=== PATIENT | male | born 1955 | race Caucasian/White ===

== ENCOUNTER 2020-08-20 16:15 | Outpatient (REF) | payer MEDICARE, SELFPAY ==
[2020-08-20 18:36] LABS: Abs Immature Grans 0.05 10^3/uL (0.0-0.06); Absolute Basophil Count 0.02 10^3/uL (0.0-0.2); Absolute Eosinophil Count 0.08 10^3/uL (0.0-0.7); Absolute Lymphocyte Count 2.11 10^3/uL (1.2-3.4); Absolute Monocyte Count 0.81 10^3/uL (0.1-0.8); Absolute Neutrophil Count 6.13 10^3/uL (1.2-6.7); Basophils % 0.2; Eosinophils % 0.9; HCT 47.2 % (40.0-50.0); HGB 15.4 g/dL (13.5-17.5); Immature Grans % 0.5; Lymphocytes % 22.9; MCH 29.9 pg (27.0-33.0); MCHC 32.6 % (32.0-36.0); MCV 91.7 fL (80-95); MPV 12.5 fL (8.0-11.0); Monocytes % 8.8; Neutrophils % 66.7; Nucleated RBC 0 %; Platelet Count 274 10^3/uL (130-400); RBC 5.15 10^6/uL (4.36-5.78); RDW 13.5 % (11.8-14.1); RDW-SD 46.2 fL
[2020-08-20 19:04] LABS: ALT 25 U/L (16-63); AST 13 U/L (15-37); Albumin 4.1 g/dL (3.4-5.0); Alkaline Phosphatase 67 U/L (46-116); Anion Gap 10.2 mmol/L (3-11); BUN 26 mg/dL (7-18); Bilirubin, Total 0.6 mg/dL (0.2-1.0); CO2 27.8 mmol/L (21.0-32.0); CREATININE 1.3 mg/dL (0.70-1.30); Calcium 9.8 mg/dL (8.5-10.1); Calculated LDL 102 mg/dL (<100); Chloride 104 mmol/L (98-107); Cholesterol 202 mg/dL (<200); Estimated GFR 55.23 (mL/min/1.73m2); Glucose 92 mg/dL (74-106); HDL Cholesterol 35 mg/dL (40-60); Sodium 142 mmol/L (136-145); TSH 0.02 uIU/mL (0.36-3.74); Total Protein 7.7 g/dL (6.4-8.2); Triglyceride 328 mg/dL (<150)
[2020-08-20 19:07] LABS: Hemoglobin A1C 5.7 % (<5.7)
[2020-08-23 05:11] LABS: Vitamin D 25 Total 38.6 ng/ml (30-100)
== END 2020-08-20 16:16 | disposition home or self-care (01) ==
LOC: NCHCN 16:15
PROVIDERS: Visit Provider Nurse Practitioner Family
DX: I10 Essential (primary) hypertension (principal); K70.30 Alcoholic cirrhosis of liver without ascites; E03.9 Hypothyroidism, unspecified; R79.89 Other specified abnormal findings of blood chemistry; E66.9 Obesity, unspecified
CPT/HCPCS: 80053; 80061; 82306; 83036; 84443; 85025

== ENCOUNTER 2020-09-23 19:45 | Outpatient (REF) | payer MEDICARE, SELFPAY ==
[2020-09-23 16:07] LABS: FREE T4 1.84 ng/dL (0.76-1.46); TSH 0.02 uIU/mL (0.36-3.74)
== END 2020-09-23 19:46 | disposition home or self-care (01) ==
LOC: NCHCN 19:45
PROVIDERS: Visit Provider Nurse Practitioner Family
DX: E03.9 Hypothyroidism, unspecified (principal)
CPT/HCPCS: 84439; 84443

== ENCOUNTER 2020-12-30 21:38 | Outpatient (REF) | payer MEDICARE, SELFPAY ==
[2020-12-30 19:07] LABS: Anion Gap 11.2 mmol/L (3-11); BUN 17 mg/dL (7-18); CO2 23.8 mmol/L (21.0-32.0); Calcium 9.2 mg/dL (8.5-10.1); Chloride 105 mmol/L (98-107); Glucose 94 mg/dL (74-106); Potassium 4.5 mmol/L (3.5-5.1); Sodium 140 mmol/L (136-145); Uric Acid 7.3 mg/dL (3.5-7.2)
[2020-12-30 19:31] LABS: Hemoglobin A1C 5.9 % (<5.7)
[2021-01-03 10:18] LABS: HBs Antibody, Quant <3.1 mIU/mL (See Note); Hepatitis B Surface Ab Negative (See Note)
[2021-01-03 11:27] LABS: Hepatitis C Ab w Rflx HCV PCR Negative (Negative)
== END 2020-12-30 21:39 | disposition home or self-care (01) ==
LOC: NCHCN 21:38
PROVIDERS: Visit Provider Nurse Practitioner Family
DX: R73.03 Prediabetes (principal); I10 Essential (primary) hypertension; K70.30 Alcoholic cirrhosis of liver without ascites; Z87.39 Personal history of other diseases of the musculoskeletal system and connective tissue
CPT/HCPCS: 80048; 86706; 86803; 83036; 84550

== ENCOUNTER 2021-04-14 21:23 | Outpatient (REF) | payer MEDICARE, SELFPAY ==
[2021-04-14 20:16] LABS: Hemoglobin A1C 5.7 % (<5.7)
[2021-04-14 20:26] LABS: BUN 23 mg/dL (7-18); CREATININE 1.3 mg/dL (0.70-1.30); Chloride 105 mmol/L (98-107); Estimated GFR 55.23 (mL/min/1.73m2); Glucose 88 mg/dL (74-106); Potassium 4.6 mmol/L (3.5-5.1); Sodium 141 mmol/L (136-145); TSH (W/Ref FT4) 0.07 uIU/mL (0.36-3.74); Uric Acid 8.1 mg/dL (3.5-7.2)
== END 2021-04-14 21:24 | disposition home or self-care (01) ==
LOC: NCHCN 21:23
PROVIDERS: Visit Provider Nurse Practitioner Family
DX: E03.9 Hypothyroidism, unspecified (principal); R73.03 Prediabetes; I10 Essential (primary) hypertension; Z00.00 Encounter for general adult medical examination without abnormal findings
CPT/HCPCS: 80048; 83036; 84439; 84443; 84550

== ENCOUNTER 2022-11-20 13:49 | Outpatient (REF) | payer MEDICARE, SELFPAY ==
[2022-11-20 18:19] LABS: Abs Immature Grans 0.25 10^3/uL (0.0-0.06); Absolute Basophil Count 0.06 10^3/uL (0.0-0.2); Absolute Eosinophil Count 0.14 10^3/uL (0.0-0.7); Absolute Lymphocyte Count 1.67 10^3/uL (1.2-3.4); Absolute Monocyte Count 1.37 10^3/uL (0.1-0.8); Absolute Neutrophil Count 9.06 10^3/uL (1.2-6.7); Basophils % 0.5; Eosinophils % 1.1; HGB 14.6 g/dL (13.5-17.5); Lymphocytes % 13.3; MCHC 32.4 % (32.0-36.0); MCV 92 fL (80-95); MPV 10.9 fL (8.0-11.0); Monocytes % 10.9; Neutrophils % 72.2; Platelet Count 361 10^3/uL (130-400); RBC 4.87 10^6/uL (4.36-5.78); RDW 13.6 % (11.8-14.1); RDW-SD 46.3 fL; WBC 12.55 10^3/uL (4.4-10.8)
[2022-11-20 18:21] LABS: ESR 69 mm/hr (0-20)
[2022-11-20 18:53] LABS: ALT 16 U/L (16-63); AST 17 U/L (15-37); Albumin 3.6 g/dL (3.4-5.0); Alkaline Phosphatase 64 U/L (46-116); Anion Gap 8.9 mmol/L (3-11); BUN 30 mg/dL (7-18); Bilirubin, Total 0.5 mg/dL (0.2-1.0); C-Reactive Protein 2.63 mg/dL (0.0-0.3); CO2 25.1 mmol/L (21.0-32.0); CREATININE 1.6 mg/dL (0.70-1.30); Calcium 9.6 mg/dL (8.5-10.1); Chloride 102 mmol/L (98-107); Estimated GFR 46.64 (mL/min/1.73m2); FREE T4 1.28 ng/dL (0.76-1.46); Glucose 94 mg/dL (74-106); Magnesium 1.8 mg/dL (1.8-2.4); Potassium 4.3 mmol/L (3.5-5.1); Sodium 136 mmol/L (136-145); TSH 1.92 uIU/mL (0.36-3.74); Total Protein 8.5 g/dL (6.4-8.2); Uric Acid 6.6 mg/dL (3.5-7.2)
[2022-11-20 19:10] LABS: Hemoglobin A1C 5.4 % (<5.7)
[2022-11-21 19:11] LABS: Rheumatoid Factor <8.6 IU/mL (<12.0)
[2022-11-22 09:35] LABS: Cyclic Citrullinated Peptide <2.5 U/mL (<5.0)
[2022-11-22 12:30] LABS: Lyme Ab w Rflx to Lyme Confirm Negative (Negative)
[2022-11-22 15:41] LABS: ANA Interpretation Positive (Negative); ANA Titer Pattern 1:320 Homogeneous
[2022-11-24 18:33] LABS: Anaplasma phagocytophilum Negative (Negative); B. miyamotoi PCR Negative (Negative); Babesia divergens/MO-1 Negative (Negative); Babesia duncani Negative (Negative); Babesia microti Negative (Negative); Ehrlichia chaffeensis Negative (Negative); Ehrlichia ewingii/canis Negative (Negative); Ehrlichia muris eauclairensis Negative (Negative)
== END 2022-11-20 13:50 | disposition home or self-care (01) ==
LOC: NCHCN 13:49
PROVIDERS: Visit Provider Nurse Practitioner Family
DX: Z86.39 Personal history of other endocrine, nutritional and metabolic disease (principal); E03.9 Hypothyroidism, unspecified; M25.50 Pain in unspecified joint; Z51.81 Encounter for therapeutic drug level monitoring
CPT/HCPCS: 80053; 85652; 86200; 87798; 83036; 83735; 84439; 84443; 84550; 85025; 86038; 86140; 86431; 86618

== ENCOUNTER 2022-12-25 18:17 | Outpatient (REF) | payer MEDICARE, SELFPAY ==
[2022-12-25 19:08] LABS: Anion Gap 9.7 mmol/L (3-11); BUN 25 mg/dL (7-18); CO2 26.3 mmol/L (21.0-32.0); CREATININE 1.7 mg/dL (0.70-1.30); Calcium 9.2 mg/dL (8.5-10.1); Chloride 105 mmol/L (98-107); Estimated GFR 43.37 (mL/min/1.73m2); Glucose 106 mg/dL (74-106); Potassium 5.1 mmol/L (3.5-5.1); Sodium 141 mmol/L (136-145); Uric Acid 8.4 mg/dL (3.5-7.2)
[2022-12-25 19:27] LABS: Calculated LDL 102 mg/dL (<100); Cholesterol 197 mg/dL (<200); HDL Cholesterol 39 mg/dL (40-60); Triglyceride 283 mg/dL (<150)
[2022-12-25 19:32] LABS: Vitamin D 25 Total 30.1 ng/mL (30-100)
== END 2022-12-25 18:18 | disposition home or self-care (01) ==
LOC: NCHCN 18:17
PROVIDERS: Visit Provider Nurse Practitioner Family
DX: I10 Essential (primary) hypertension (principal); E03.9 Hypothyroidism, unspecified; Z86.39 Personal history of other endocrine, nutritional and metabolic disease
CPT/HCPCS: 80048; 80061; 82306; 84550

== ENCOUNTER 2022-12-29 00:59 | Outpatient (CLI) | payer MEDICARE, SELFPAY ==
--- NOTE | 2022-12-29 13:16 | DI.RAD_ITS ---
Exam(s) XR HAND RT COMPLETE EXAM: XR HAND RT COMPLETE CLINICAL HISTORY: H/O GOUT,Z86.39,JOINT PAIN, M79.643. TECHNIQUE: 2D digital imaging was performed. Three views. COMPARISON: CR XR HAND LT COMPLETE from 12/29/2022 FINDINGS: BONES: No acute fracture is present. JOINTS: No dislocation present. Extensive degenerative changes in the carpal region, suboptimally pr ofiled on this exam. Joint space narrowing and prominent spurring at the 3rd metacarpophalangeal join t. Erosion in the metacarpal head and base of proximal phalanx. . Marginal erosions seen in the heads of the proximal phalanges. Joint space narrowing and spurring at the proximal interphalangeal joints of the fingers. SOFT TISSUE: Swelling around the proximal interphalangeal joints mild soft tissue calcifications violet cent to the 3rd through 5th metacarpophalangeal joints. IMPRESSION: Bony erosions, swelling and periarticular calcifications are consistent with gout. There are also el ements of degenerative arthritis. DATA REPOSITORY: RADIATION DOSE DELIVERED:
--- NOTE | 2022-12-29 15:16 | DI.RAD_ITS ---
Exam(s) XR HAND LT COMPLETE EXAM: XR HAND LT COMPLETE CLINICAL HISTORY: H/O GOUT,Z86.39,JOINT PAIN, M79.643. TECHNIQUE: 2D digital imaging was performed. Three views. COMPARISON: No exams were available for comparison FINDINGS: There is joint space narrowing at the 1st metacarpophalangeal joint. There are degenerative subchond ral cysts versus erosions. There is subluxation. A small amount of surrounding soft tissue calcific ation is seen. The remaining metacarpophalangeal joints are unremarkable. There is mild joint space narrowing and mild spurring at the proximal interphalangeal joints of the 2 nd and 3rd fingers. Erosions are seen at the margins at the distal aspect of the proximal phalanx. Adjacent soft tissue swelling. Mild joint space narrowing at the distal interphalangeal joint of the ring finger. Mild marginal ero sions. Surrounding swelling and mild calcification. Prominent spurring at the base of the distal phalanx of little finger. No visible erosions. IMPRESSION: Bony erosions surrounding soft tissue swelling and mild calcifications, consistent with gout. There are some underlying changes of osteoarthritis as well. DATA REPOSITORY: RADIATION DOSE DELIVERED:
== END 2022-12-29 01:19 ==
PROVIDERS: Visit Provider Nurse Practitioner Family
DX: Z86.39 Personal history of other endocrine, nutritional and metabolic disease (principal); M18.12 Unilateral primary osteoarthritis of first carpometacarpal joint, left hand
CPT/HCPCS: 73130

== ENCOUNTER 2023-03-02 16:33 | Outpatient (REF) | payer MEDICARE, SELFPAY ==
[2023-03-02 19:05] LABS: BUN 21 mg/dL (7-18); CREATININE 1.3 mg/dL (0.70-1.30); Calcium 9.8 mg/dL (8.5-10.1); Chloride 104 mmol/L (98-107); Estimated GFR 59.84 (mL/min/1.73m2); Glucose 97 mg/dL (74-106); Potassium 4.4 mmol/L (3.5-5.1); Sodium 139 mmol/L (136-145); Uric Acid 7.3 mg/dL (3.5-7.2)
== END 2023-03-02 16:34 | disposition home or self-care (01) ==
LOC: NCHCN 16:33
PROVIDERS: Visit Provider Nurse Practitioner Family
DX: M10.9 Gout, unspecified (principal); R94.4 Abnormal results of kidney function studies
CPT/HCPCS: 80048; 84550

== ENCOUNTER 2023-08-10 18:38 | Outpatient (REF) | payer MEDICARE, SELFPAY ==
[2023-08-10 20:18] LABS: HCT 45.2 % (40.0-50.0); HGB 15.1 g/dL (13.5-17.5); MCH 30.6 pg (27.0-33.0); MCHC 33.4 % (32.0-36.0); MCV 92 fL (80-95); MPV 11.6 fL (8.0-11.0); Platelet Count 315 10^3/uL (130-400); RBC 4.94 10^6/uL (4.36-5.78); RDW 13.7 % (11.8-14.1); RDW-SD 46.5 fL; WBC 9.36 10^3/uL (4.4-10.8)
[2023-08-10 20:28] LABS: INR 0.9 (0.9-1.1); Prothrombin Time 9.1 sec (9.1-11.1)
[2023-08-10 20:59] LABS: ALT 25 U/L (16-63); AST 23 U/L (15-37); Alkaline Phosphatase 69 U/L (46-116); Anion Gap 12.4 mmol/L (3-11); BUN 41 mg/dL (7-18); Bilirubin, Total 0.8 mg/dL (0.2-1.0); CO2 23.6 mmol/L (21.0-32.0); CREATININE 1.6 mg/dL (0.70-1.30); Calcium 9.7 mg/dL (8.5-10.1); Chloride 103 mmol/L (98-107); Estimated GFR 46.35 (mL/min/1.73m2); Glucose 92 mg/dL (74-106); Magnesium 2.2 mg/dL (1.8-2.4); Potassium 5.3 mmol/L (3.5-5.1); Sodium 139 mmol/L (136-145); TSH (W/Ref FT4) 0.02 uIU/mL (0.36-3.74); Total Protein 8.6 g/dL (6.4-8.2); Vitamin B12 206 pg/mL (193-986)
[2023-08-10 21:15] LABS: FREE T4 1.69 ng/dL (0.76-1.46); Uric Acid 7.5 mg/dL (3.5-7.2)
== END 2023-08-10 18:39 | disposition home or self-care (01) ==
LOC: NCHCN 18:38
PROVIDERS: PCP Nurse Practitioner Family; Visit Provider Nurse Practitioner Family
DX: E03.9 Hypothyroidism, unspecified (principal); M10.9 Gout, unspecified; K21.9 Gastro-esophageal reflux disease without esophagitis; K76.0 Fatty (change of) liver, not elsewhere classified; R26.89 Other abnormalities of gait and mobility; R79.89 Other specified abnormal findings of blood chemistry
CPT/HCPCS: 80053; 85027; 82607; 83735; 84439; 84443; 84550; 85610

== ENCOUNTER 2023-09-07 11:57 | Outpatient (REF) | payer MEDICARE, SELFPAY ==
[2023-09-07 15:31] LABS: Anion Gap 10.1 mmol/L (3-11); BUN 43 mg/dL (7-18); CO2 23.9 mmol/L (21.0-32.0); CREATININE 1.6 mg/dL (0.70-1.30); Calcium 9.1 mg/dL (8.5-10.1); Chloride 106 mmol/L (98-107); Estimated GFR 46.35 (mL/min/1.73m2); Glucose 86 mg/dL (74-106); Potassium 5.1 mmol/L (3.5-5.1); Sodium 140 mmol/L (136-145)
== END 2023-09-07 11:58 | disposition home or self-care (01) ==
LOC: NCHCN 11:57
PROVIDERS: PCP Nurse Practitioner Family; Visit Provider Nurse Practitioner Family
DX: R79.89 Other specified abnormal findings of blood chemistry (principal)
CPT/HCPCS: 80048

== ENCOUNTER 2023-10-18 16:25 | Outpatient (REF) | payer MEDICARE, SELFPAY ==
[2023-10-18 19:43] LABS: Anion Gap 10.6 mmol/L (3-11); BUN 37 mg/dL (7-18); CO2 26.4 mmol/L (21.0-32.0); CREATININE 1.6 mg/dL (0.70-1.30); Calcium 9.9 mg/dL (8.5-10.1); Chloride 105 mmol/L (98-107); Estimated GFR 46.35 (mL/min/1.73m2); Glucose 93 mg/dL (74-106); Potassium 4.8 mmol/L (3.5-5.1); Sodium 142 mmol/L (136-145); TSH (W/Ref FT4) 0.05 uIU/mL (0.36-3.74); Vitamin B12 351 pg/mL (193-986)
[2023-10-18 20:03] LABS: FREE T4 1.41 ng/dL (0.76-1.46); Uric Acid 6.5 mg/dL (3.5-7.2)
== END 2023-10-18 16:26 | disposition home or self-care (01) ==
LOC: NCHCN 16:25
PROVIDERS: PCP Nurse Practitioner Family; Visit Provider Nurse Practitioner Family
DX: E03.9 Hypothyroidism, unspecified (principal)
CPT/HCPCS: 80048; 82607; 84439; 84443; 84550

== ENCOUNTER 2024-01-24 18:57 | Outpatient (REF) | payer OTHER, SELFPAY ==
[2024-01-24 20:15] LABS: ALT 16 U/L (16-63); AST 26 U/L (15-37); Alkaline Phosphatase 59 U/L (46-116); Anion Gap 10.1 mmol/L (3-11); BUN 28 mg/dL (7-18); Bilirubin, Total 0.49 mg/dL (0.2-1.0); CO2 23.9 mmol/L (21.0-32.0); CREATININE 1.3 mg/dL (0.70-1.30); Chloride 105 mmol/L (98-107); Estimated GFR 59.47 (mL/min/1.73m2); Glucose 95 mg/dL (74-106); Sodium 139 mmol/L (136-145); TSH 0.07 uIU/Ml (0.36-3.74); Total Protein 8.7 g/dL (6.4-8.2); Uric Acid 5.2 mg/dL (3.5-7.2)
[2024-01-24 20:39] LABS: Hemoglobin A1C 5.8 % (<5.7)
[2024-01-28 09:55] LABS: PSA, Screening 0.6 ng/mL (<=4.5)
== END 2024-01-24 18:58 | disposition home or self-care (01) ==
LOC: NCHCN 18:57
PROVIDERS: PCP Nurse Practitioner Family; Visit Provider Nurse Practitioner Family
DX: N18.9 Chronic kidney disease, unspecified (principal); R35.89 Other polyuria
CPT/HCPCS: 80053; 84153; 83036; 84443; 84550